=== PATIENT | male | born 1935 | race Two or more races ===

== ENCOUNTER 2024-10-24 13:33 | Emergency (ER) | payer OTHER ==
[~2024-10-24] VITALS: Ht 170.2 cm; Wt 74.8 kg
[~2024-10-24 13:33] MED LIST: CIPRO750 MG PO; CLONAZEPAM1 MG PO; DOCUSATE SODIU100 MG PO; METHYLPRED4 MG/DOSE- PO; NEURONTIN PO; PERCOCET 5/3251 TAB PO
[2024-10-24] MEDS ORDERED: LOSARTAN POTASS50 MG (13:37)
[2024-10-24] MEDS ORDERED: METFORMIN HCL500 M3 (13:37)
[2024-10-24 13:38] VITALS: BP 95/57; O2SAT 96
[2024-10-24] MEDS ORDERED: GUAIFENESIN/DEXTROMETHORPHAN 100MG/10ML BLIST.PACK PO ONE (15:15)
[2024-10-24] MEDS ORDERED: GUAIFEN/DEXTROMETHORPHAN/PE 10 ML BLIST.PACK PO ONE (15:17)
[2024-10-24 16:24] LABS: BASO % 1.2 % (0.1-1.2); EOS % 1.8 % (0.7-7.0); HEMATOCRIT 44.3 % (40.1-51.0); HEMOGLOBIN 14.5 g/dL (13.7-17.5); LYMPH % 22.9 % (19.3-53.1); MONO # 1.13 (0.24-0.82); NEUT # 3.05 (1.56-6.13); NEUT % 53.8 % (34.0-71.1); PLATELET COUNT 209 K/uL (163-369); RED CELL DISTRIBUTION WIDTH 13.9 % (11.6-14.4)
[2024-10-24 16:39] LABS: MONO % 19.9 % (4.7-12.5)
[2024-10-24 16:44] LABS: COVID-19 AG NEGATIVE (NEGATIVE); INFLUENZA A AG NEGATIVE (NEGATIVE)
[2024-10-24] MEDS ORDERED: ZITHROMAX500 MG PO (17:41)
== END 2024-10-24 18:18 | disposition home or self-care (01) ==
LOC: ER 13:33
PROVIDERS: General Practice
DX: J98.8 Other specified respiratory disorders (principal); Z88.0 Allergy status to penicillin; Z20.822 Contact with and (suspected) exposure to COVID-19; Z79.84 Long term (current) use of oral hypoglycemic drugs; I10 Essential (primary) hypertension; E11.40 Type 2 diabetes mellitus with diabetic neuropathy, unspecified

== ENCOUNTER → 2024-10-25 | Emergency (ER) | payer OTHER ==
[~2024-10-25] MED LIST changes: +LOSARTAN POTASS50 MG; +METFORMIN HCL500 M3; +ZITHROMAX500 MG PO
== END | disposition left against medical advice (07) ==
LOC: ER 14:54
DX: Z53.21 Procedure and treatment not carried out due to patient leaving prior to being seen by health care provider (principal)